=== PATIENT | female | born 1945 | race Asian ===

== ENCOUNTER 2023-03-08 22:41 | Emergency (ER) | payer OTHER ==
[~2023-03-08] VITALS: Ht 152.4 cm; Wt 61.2 kg
[2023-03-08 23:18] VITALS: BP_SYST 180; PULSE 63; RESP 19; TEMP 97.7; O2SAT 94
[2023-03-09] MEDS ORDERED: ONDANSETRON 4 MG ODT TAB PO ONE
[2023-03-09] MEDS ORDERED: ONDANSETRON HCL 4 MG/2 ML VIAL IVP ONE (01:00)
[2023-03-09] MEDS ORDERED: ENALAPRILAT DIHYDRATE 1.25 MG/ML VIAL IVP ONE (01:00)
[2023-03-09 01:20] LABS: BASOPHILS % (AUTO) 0.2 % (0.0-2.0); EOSINOPHILS % (AUTO) 0.4 % (0.0-4.0); HEMATOCRIT 35.5 % (36-48); HEMOGLOBIN 11.1 g/dL (12.0-16.0); LYMPHOCYTES # (AUTO) 1.7 K/uL (1.0-5.5); LYMPHOCYTES % (AUTO) 14.5 % (20.5-51.5); MEAN CORPUSCULAR HEMOGLOBIN 20 pg (27-31); MEAN CORPUSCULAR HGB CONC 31 % (32-36); MEAN CORPUSCULAR VOLUME 64 fL (79.0-98.0); MONOCYTES # (AUTO) 0.6 K/uL (0.0-1.0); MONOCYTES % (AUTO) 4.8 % (1.7-9.3); NEUTROPHILS # (AUTO) 9.5 K/uL (1.8-7.7); NEUTROPHILS % (AUTO) 80.1 % (40.0-70.0); PLATELET COUNT (AUTO) 255 K/uL (130-430); RED BLOOD CELL COUNT(AUTO) 5.58 MIL/uL (4.2-6.2); RED CELL DISTRIBUTION WIDTH 14.8 % (9.0-15.0); WHITE BLOOD COUNT (AUTO) 11.9 K/uL (4.8-10.8)
[2023-03-09 01:44] LABS: ALANINE AMINOTRANSFERASE 39 U/L (12-78); ANION GAP 7 (5-15); ASPARTATE AMINOTRANSFERASE 28 U/L (10-37); CALCIUM 8.4 mg/dL (8.4-11.0); CHLORIDE 100 mmol/L (98-107); CREATININE 0.89 mg/dL (0.55-1.30); GLUCOSE 153 mg/dL (74-106); TOTAL BILIRUBIN 0.5 mg/dL (0.0-1.0); UREA NITROGEN, BLOOD 15 mg/dL (8-21)
[2023-03-09] MEDS ORDERED: MECL-261 PO (03:26)
[2023-03-09 03:33] VITALS: BP_SYST 142; PULSE 63; RESP 19; TEMP 97.7; O2SAT 100
== END 2023-03-09 03:33 | disposition home or self-care (01) ==
LOC: SED 22:41
DX: H81.10 Benign paroxysmal vertigo, unspecified ear (principal); I10 Essential (primary) hypertension; R11.2 Nausea with vomiting, unspecified; F17.200 Nicotine dependence, unspecified, uncomplicated; Z79.899 Other long term (current) drug therapy
CPT/HCPCS: 99285; 80053; 83880; 85025; 84484; 36415; 96374; 70450; 71045; 96375; 93005; 76376; Q0162; J2405